=== PATIENT | male | born 1985 | race African-American/Black ===

== ENCOUNTER 2019-02-16 23:27 | Emergency (ER) | payer SELFPAY ==
[~2019-02-16] VITALS: Ht 188 cm; Wt 77.1 kg
[2019-02-16 23:35] VITALS: BP 121/84
[2019-02-17] MEDS ORDERED: TETANUS-DIPTH-ACEL PERTUSSIS 0.5ML SYRG IM ONE (02:15)
[2019-02-17] MEDS ORDERED: cefTRIAXone SOD 1,000 MG VL IM ONE (02:15)
== END 2019-02-17 03:26 | disposition home or self-care (01) ==
LOC: ER 23:27
DX: S61.217A Laceration without foreign body of left little finger without damage to nail, initial encounter (principal); W25.XXXA Contact with sharp glass, initial encounter; Y93.89 Activity, other specified; Y99.8 Other external cause status; Y92.89 Other specified places as the place of occurrence of the external cause
CPT/HCPCS: 12002; 73130; 90471; 90715; 96372; 99283; J0696